=== PATIENT | male | born 2005 | race Hispanic/Latino ===

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

== ENCOUNTER 2023-01-15 20:43 | Emergency (ER) | payer OTHER ==
[2023-01-15] MEDS ORDERED: Ibuprofen 200 MG TAB ONE (22:47)
[2023-01-15] MEDS ORDERED: Bacitracin 1 PK ONE (23:09)
== END 2023-01-15 23:19 | disposition home or self-care (01) ==
LOC: ERS 20:43
DX: L03.031 Cellulitis of right toe (principal); B35.3 Tinea pedis; L60.0 Ingrowing nail
CPT/HCPCS: 11750

== ENCOUNTER 2023-03-23 21:06 | Observation (INO) | payer OTHER ==
[2023-03-23] MEDS ORDERED: CEFAZOLIN 1 GM VIAL ONE (21:11)
[2023-03-23] MEDS ORDERED: Boostrix 0.5 ML (Tdap) VIAL (>/=7 yrs of age) ONE (21:11)
[2023-03-23] MEDS ORDERED: fentaNYL 50 mcg/mL 1 mL Vial ONE (21:27)
[2023-03-23] MEDS ORDERED: Ketorolac Tromethamine 30 MG/ML VIAL ONE (21:27)
[2023-03-23 22:04] LABS: #Basophils 0.1 thou/uL (0.0-0.2); #Eosinphils 0.1 thou/uL (0.0-0.7); #Monocytes 0.8 thou/uL (0.11-0.59); #Neutrophils 4.2 thou/uL (1.40-6.50); %Basophils 0.6 % (0.0-1.0); %Eosinophils 1.3 % (0.0-10.0); %Lymphocytes 40.2 % (28.0-48.0); %Monocytes 9.1 % (0.0-4.0); %Neutrophils 48.3 % (31.0-61.0); Hematocrit 49.6 % (42.0-52.0); Hemoglobin 16.8 g/dL (14.0-18.0); Mean Corpuscular HGB CONC 33.9 g/dL (32.0-36.0); Mean Corpuscular Hemoglobin 30.7 pg (25.0-35.0); Mean Corpuscular Volume 90.7 fl (78.0-98.0); Mean Platelet Volume 11.1 fL (7.4-10.4); Platelet Count 319 10x3/uL (130-400); RBC Distribution Width 12.2 % (11.5-14.5); Red Blood Cell (RBC) Count 5.47 mill/uL (4.00-5.20); White Blood Cell (WBC) Count 8.6 10x3/uL (4.8-10.8)
[2023-03-23] MEDS ORDERED: Morphine 4 MG/ML VIAL SLOW IVP PRN (22:10)
[2023-03-23] MEDS ORDERED: Ondansetron PF 4 MG/2 ML Vial IVP PRN (22:15)
[2023-03-23] MEDS ORDERED: Ondansetron ODT 4 MG TAB SL PRN (22:15)
[2023-03-23 22:21] LABS: PTT 27.4 sec (22.9-36.1); Prothrombin Time 13.2 sec (12.0-14.7)
[2023-03-23 22:23] LABS: ALT (SGPT) 16 U/L (8-55); AST (SGOT) 19 U/L (5-34); Albumin 5.6 g/dL (3.5-5.0); Alkaline Phosphatase 135 U/L (50-130); Anion Gap 19 mmol/L (10-20); BUN (Urea Nitrogen) 17 mg/dL (8.9-20.6); Bilirubin, Total 0.5 mg/dL (0.2-1.2); Calc. Creatinine Clearance 0 mL/min (70-130); Calcium 10.1 mg/dL (7.8-10.44); Carbon Dioxide 24 mmol/L (22-29); Chloride 102 mmol/L (98-107); Estimated GFR 122; Globulin 2.8 g/dL (2.4-3.5); Glucose 113 mg/dL (70-105); Potassium 3.1 mmol/L (3.5-5.1); Protein, Total 8.4 g/dL (6.0-8.3); Sodium 142 mmol/L (136-145)
[2023-03-23] MEDS: D5 1/2 NS w/20 mEq KCL 1,000 ML IV SCH (23:28)
[2023-03-23 23:41] VITALS: BMI 17.6
[2023-03-24] MEDS ORDERED: Ipratropium/Albuterol 3 ML NEB NEB PRN (04:48)
[2023-03-24] MEDS ORDERED: traMADol HCl 50 MG TAB PO PRN ×2 (04:49→07:54)
[2023-03-24] MEDS ORDERED: Ibuprofen 200 MG TAB PO PRN (04:52)
[2023-03-24] MEDS ORDERED: Sodium Chloride 0.9% 1,000 ML IV SCH (05:00)
[2023-03-24] MEDS: traMADol HCl 50 MG TAB PO SCH ×2 (05:38→11:44)
[2023-03-24] MEDS: Acetaminophen 500 MG TAB PO SCH ×2 (05:38→11:44)
[2023-03-24] MEDS ORDERED: Famotidine 20 MG TAB PO SCH (09:00)
[2023-03-24] MEDS ORDERED: Senokot S 8.6-50 MG TAB PO SCH (09:00)
[2023-03-24] MEDS ORDERED: Polyethylene Glycol 3350 17 GM Packet PO SCH (09:00)
[2023-03-24 09:53] LABS: Amphetamine Not Detected (NotDetected); Barbiturates Screen Not Detected (NotDetected); Benzodiazepine Screen Not Detected (NotDetected); Cocaine Metabolite Screen Not Detected (NotDetected); Methadone Not Detected (NotDetected); Methamphetamine Not Detected (NotDetected); Opiate Screen Detected (NotDetected); Oxycodone Screen Not Detected (NotDetected); Phencyclidine (PCP) Not Detected (NotDetected); THC/Cannabinoid Screen Not Detected (NotDetected); Tricyclic Screen Not Detected (NotDetected)
[2023-03-24] MEDS: D5 1/2 NS w/20 mEq KCL 1,000 ML IV SCH (11:47)
[2023-03-24 11:58] VITALS: BP 103/60; TEMP 98
[2023-03-24] MEDS ORDERED: Cephalexin 250 MG CAP PO SCH (12:00)
[2023-03-27] MEDS ORDERED: FLU VACC QS2023-24(6MOS UP)/PF 60 MCG/0.5 ML SYRINGE IM ONE (09:00)
== END 2023-03-24 16:55 | disposition home or self-care (01) ==
LOC: ERS 21:06 → EEVIPCON 21:06 → INTOOBSV 22:05 → SURG A 22:05
PROVIDERS: ADMIT Surgery; ATTEND Surgery
DX: S52.202A Unspecified fracture of shaft of left ulna, initial encounter for closed fracture (principal); W34.00XA Accidental discharge from unspecified firearms or gun, initial encounter
CPT/HCPCS: 71045; 80053; 80306; 85025; 85610; 85730; 90715; 93005; J0690; J1885; J2270; J2405; J3010; J3480; J7050